=== PATIENT | male | born 1960 | race Caucasian/White ===

== ENCOUNTER → 2019-05-25 12:13 | Outpatient (CLI) | payer OTHER, SELFPAY ==
--- NOTE | 2019-05-28 15:57 | PM.PFT.1 ---
Pulmonary Function Test Referral & Results Date Patient Seen: 05/25/19 Requesting provider: Gamaliel Asencio Results: The spirometry demonstrates an FVC of 4.44 L which is 95% of predicted. The FEV1 was measured at 3.72 L which is 104% of predicted. The FEV1/FVC ratio was 80 for which is 110% of predicted. Following the administration of bronchodilator there was no appreciable change. Lung volumes show an SVC of 3.63 L which is 70% of predicted. The diffusing capacity was measured at 33.29 which is 107% of predicted. The maximum voluntary ventilation was normal Interpretation: This study demonstrates normal pulmonary function. The may be a slight reduction in lung volumes based on slightly reduced SVC suggesting minimal restrictive lung disease
== END ==
PROVIDERS: Visit Provider Student in an Organized Health Care Education/Training Program
DX: R06.09 Other forms of dyspnea (principal)
CPT/HCPCS: 94060; 94726; 94729